=== PATIENT | male | born 1950 | race Caucasian/White ===

== ENCOUNTER 2018-11-26 15:45 | Emergency (ER) | payer OTHER ==
[~2018-11-26] VITALS: Ht 182.8 cm; Wt 90.7 kg
== END 2018-11-26 18:45 | disposition home or self-care (01) ==
LOC: ED 15:45
DX: S42.202A Unspecified fracture of upper end of left humerus, initial encounter for closed fracture (principal); S42.212A Unspecified displaced fracture of surgical neck of left humerus, initial encounter for closed fracture; W11.XXXA Fall on and from ladder, initial encounter; Y93.89 Activity, other specified; Y92.89 Other specified places as the place of occurrence of the external cause; Y99.8 Other external cause status